=== PATIENT | female | born 1995 | race Caucasian/White ===

== ENCOUNTER 2021-08-15 11:26 | Emergency (ER) | payer OTHER ==
[~2021-08-15] VITALS: Ht 165.1 cm; Wt 61.2 kg
[2021-08-15] MEDS ORDERED: PROAIR RESPICL90 MCG (11:41)
[2021-08-15] MEDS ORDERED: COLACE100 MG PO (12:58)
== END 2021-08-15 14:10 | disposition home or self-care (01) ==
LOC: ER 11:26
DX: K59.00 Constipation, unspecified (principal)

== ENCOUNTER 2022-09-04 10:47 | Emergency (ER) | payer OTHER ==
[~2022-09-04] VITALS: Ht 165.1 cm; Wt 61.2 kg
[~2022-09-04 10:47] MED LIST: COLACE100 MG PO; PROAIR RESPICL90 MCG
== END 2022-09-04 14:43 | disposition home or self-care (01) ==
LOC: ER 10:47
DX: S69.82XA Other specified injuries of left wrist, hand and finger(s), initial encounter (principal); W31.89XA Contact with other specified machinery, initial encounter; Y93.79 Activity, other specified sports and athletics; Y92.39 Other specified sports and athletic area as the place of occurrence of the external cause